=== PATIENT | female | born 1940 | race Caucasian/White ===

== ENCOUNTER 2017-02-03 06:30 | Emergency (ER) | payer OTHER ==
[~2017-02-03] VITALS: Ht 165.1 cm; Wt 63.5 kg
--- NOTE | 2017-02-03 06:58 | ED GENERAL ADULT ---
History of Present Illness General Chief Complaint: General Adult Stated Complaint: "PASSING OUT SPELLS" PER PT AND DAUGHTER Source: patient Exam Limitations: no limitations Vital Signs & Intake/Output Vital Signs & Intake/Output Vital Signs Date Time Temp Pulse Resp B/P Pulse O2 O2 Flow FiO2 Ox Delivery Rate 02/03 0941 74 136/68 02/03 0649 97.0 72 18 128/62 97 Room Air 02/03 0645 Room Air Allergies Coded Allergies: levofloxacin (From [facility]) (Severe, FACIAL SWELLING 02/03/17) Reconcile Medications Cholecalciferol (Vitamin D3) (Vitamin D) 2,000 UNIT TABLET 1 TAB PO DAILY SUPPLEMENT (Reported) Fluticasone-Salmeterol (Advair 100-50 Diskus) 100 MCG-50 MCG/DOSE BLST.W.DEV 1 PUF INH BID BREATHING PROBLEMS (Reported) Olmesartan Medoxomil (Benicar) 20 MG TABLET 1 TAB PO DAILY HEART (Reported) Vit A/Vit C/Vit E/Zinc/Copper (Preservision Areds Tablet) 7,160-113 TABLET 1 TAB PO BID EYE (Reported) Triage Nurses Notes Reviewed? yes Onset: Abrupt Duration: day(s): Timing: recent history HPI: 01/06/17 This is a 76-year-old female who presents to the emergency department for near- syncope. The patient states she was in her usual state of health until approximately the past week where she's had multiple episodes of syncope and near syncope. The episodes occur in the morning. She has been worked up twice at [facility] including EKG labs and carotid ultrasound. They've yet to come up with a etiology. She was treated for a UTI. The onset of the symptoms are abrupt, the duration has been approximately one week, the severity is significant; as the symptoms required her to come to the emergency department for care. She denies chest pain shortness of breath headache or other complaints. She says she does get belching with the episodes. Past History Travel History Traveled to [place] past 21 day No Medical History Any Pertinent Medical History? see below for history Neurological: NONE EENT: cataracts Cardiovascular: NONE Respiratory: NONE Gastrointestinal: NONE Hepatic: NONE Renal: NONE Musculoskeletal: NONE Psychiatric: NONE Endocrine: NONE Blood Disorders: NONE Cancer(s): NONE SOLAR INSTALLATION TECHNICIAN/Reproductive: NONE Surgical History Surgical History: cholecystectomy Psychosocial History What is your primary language Armenian Tobacco Use: Never used Family History Hx Contributory? No Review of Systems Review of Systems Constitutional: Denies: fever. EENTM: Denies: eye pain. Respiratory: Denies: short of breath. Cardiovascular: Denies: chest pain. GI: Reports: bloating. Denies: abdominal pain. Genitourinary: Reports: see HPI. Musculoskeletal: Reports: no symptoms. Skin: Reports: no symptoms. Neurological/Psychological: Denies: headache. Hematologic/Endocrine: Reports: no symptoms. Physical Exam Physical Exam General Appearance: alert, awake, mild distress Head: atraumatic Eyes: Right: other (scaring/blind). Ears, Nose, Throat: normal pharynx Neck: normal inspection Respiratory: chest non-tender Cardiovascular: regular rate/rhythm Peripheral Pulses: 4+ radial (R), 4+ radial (L) Gastrointestinal: soft, non-tender Back: normal range of motion Extremities: normal range of motion Neurologic/Psych: awake, alert, oriented x 3 Skin: intact, normal color, warm/dry Core Measures ACS in differential dx? No CVA/TIA Diagnosis: No Severe Sepsis Present: No Septic Shock Present: No Progress Differential Diagnoses I considered the following diagnoses in my evaluation of the patient: [ Bradycardia, hypoglycemia, orthostatic hypotension, adverse drug reaction, valvular heart disease,] Plan of Care: Orders Procedure Date/time Status Heart Healthy Diet 02/03 L Active TROPONIN LEVEL 02/03 1003 Complete EKG 02/03 1003 Active MISTAKE 02/03 0813 Active ECHOCARDIOGRAM 02/03 0726 Active TROPONIN LEVEL 02/03 0648 Complete COMPREHENSIVE METABOLIC PANEL 02/03 0648 Complete CBC WITHOUT DIFFERENTIAL 02/03 0648 Complete EKG 02/03 0635 Active Laboratory Tests 02/03/17 1030: Troponin I < 0.01 02/03/17 0658: Anion Gap 7, Estimated GFR > 60, BUN/Creatinine Ratio 21.7, Glucose 93, Calcium 10.0, Total Bilirubin 0.5, AST 25, ALT 34, Alkaline Phosphatase 84, Troponin I < 0.01, Total Protein 6.6, Albumin 3.9, Globulin 2.7, Albumin/Globulin Ratio 1.4, CBC w Diff NO MAN DIFF REQ, RBC 4.51, MCV 90.5, MCH 30.5, RDW 13.4, MPV 7.1 L, Gran % 60.7, Lymphocytes % 25.4, Monocytes % 10.7 H, Eosinophils % 2.2, Basophils % 1.0, Absolute Granulocytes 2.9, Absolute Lymphocytes 1.2, Absolute Monocytes 0.5, Absolute Eosinophils 0.1, Absolute Basophils 0, PUBS MCHC 33.7 Initial ED EKG: NSR Departure Departure Disposition: STILL A PATIENT Condition: Stable Clinical Impression Primary Impression: Near syncope Referrals: UNKNOWN (PCP/Family) Departure Forms: Customer Survey General Discharge Information Comments 02/03/17 At 11:40 AM the patient is asymptomatic. She did have borderline orthostatic changes. She received IV fluids. Repeat EKG and troponin are unremarkable She will follow-up with her founder ceo & president and get the echocardiogram done as an outpatient. We will EMRE Elder Critical Care Note Critical Care Note Critical Care Time: non-applicable
[2017-02-03 07:48] LABS: ABSOLUTE BASOPHIL COUNT 0 /CUMM (0.0-0.2); ABSOLUTE EOSINOPHIL COUNT 0.1 /CUMM (0.0-0.7); ABSOLUTE GRANULOCYTE CT 2.9 /CUMM (1.4-6.5); ABSOLUTE LYMPH COUNT 1.2 /CUMM (1.2-3.4); ABSOLUTE MONOCYTE COUNT 0.5 /CUMM (0.10-0.60); EOSINOPHIL % 2.2 % (0-5); GRANULOCYTE % 60.7 % (42.2-75.2); HEMATOCRIT 40.8 % (37-47); MEAN CORPUSCULAR HGB 30.5 PG (27.0-31.0); MEAN CORPUSCULAR HGB CONC 33.7 G/DL (33.0-37.0); MEAN CORPUSCULAR VOLUME 90.5 FL (81.0-99.0); MEAN PLATELET VOLUME 7.1 FL (7.4-10.4); PLATELET COUNT 258 /CUMM (130-400); RBC DISTRIBUTION WIDTH 13.4 % (11.5-14.5); RED BLOOD CELL CT 4.51 /CUMM (4.20-5.40); WHITE BLOOD CELL COUNT 4.7 /CUMM (4.8-10.8)
[2017-02-03] MEDS ORDERED: PRESERVISION A1 EACH PO (08:51)
[2017-02-03] MEDS ORDERED: VITAMIN D2000 UNI1 PO (08:51)
[2017-02-03] MEDS ORDERED: BENICAR20 M1 PO (08:51)
[2017-02-03] MEDS ORDERED: ADVAIR 100-501 EACH INH (08:52)
[2017-02-03 09:41] VITALS: BP 136/68
--- NOTE | 2017-02-03 11:31 | CT SCAN REPORT ---
EXAMINATION: CT HEAD WITHOUT CONTRAST CLINICAL INFORMATION: Syncope. Rule out mass. COMPARISON: None. TECHNIQUE: Contiguous axial imaging was performed from the skull base to vertex without intravenous contrast. DLP: 601 mGy-cm. FINDINGS: There is no evidence of acute intracranial hemorrhage or territorial infarction. No abnormal mass effect or midline shift is seen. [place] to white matter differentiation is well preserved. No extra-axial fluid collections are identified. No hydrocephalus. Proportional prominence of the ventricles and sulcal spaces is consistent with mild volume loss. Patchy periventricular and deep white matter hypoattenuation is consistent with mild small vessel ischemic changes. The osseous structures and soft tissues are normal. The mastoid air cells and visualized portions of the paranasal sinuses are well aerated. IMPRESSION: No acute intracranial pathology. Mild volume loss with small vessel ischemic changes.
== END 2017-02-03 12:43 ==
LOC: ERH 06:30
PROVIDERS: Emergency Medicine
DX: R55 Syncope and collapse (principal)
CPT/HCPCS: 93005; 93010